=== PATIENT | female | born 1980 | race African-American/Black ===

== ENCOUNTER 2018-07-28 07:46 | Emergency (ER) | payer BC, SELFPAY ==
[~2018-07-28 07:46] MED LIST: Sodium Chloride 0.9% 1,000 ML BAG ONE
[2018-07-28 08:28] LABS: Hemoglobin 12.8 g/dL (12.0-16.0); Mean Corpuscular HGB CONC 31.6 g/dL (32.0-36.0); Mean Corpuscular Hemoglobin 28.5 pg (27.0-31.0); Mean Corpuscular Volume 90.2 fL (78.0-98.0); Platelet Count 289 thou/uL (130-400); RBC Distribution Width 12.1 % (11.5-14.5); Red Blood Cell (RBC) Count 4.49 mill/uL (4.20-5.40); White Blood Cell (WBC) Count 4.2 thou/uL (4.8-10.8)
[2018-07-28 08:29] LABS: Anisocytosis SLIGHT = 6-15 cells (100X) (0-5/hpf); Band 1 % (5-11); Lymphocytes 39 % (21-51); MDiff Complete? YES; Manual Diff?? YES; Monocytes 2 % (0-10); Neutrophil 58 % (42-75); PLT Morphology Comment Appears Adequate
[2018-07-28 08:31] LABS: Anion Gap 15 mmol/L (10-20); BUN (Urea Nitrogen) 11 mg/dL (7.0-18.7); Calc. Creatinine Clearance 0 mL/min (70-130); Calcium 9.5 mg/dL (7.8-10.44); Carbon Dioxide 22 mmol/L (22-29); Chloride 107 mmol/L (98-107); Estimated GFR-MDRD 86; Glucose 90 mg/dL (70-105); Potassium 4.3 mmol/L (3.5-5.1); Sodium 140 mmol/L (136-145)
[2018-07-28 08:34] LABS: CKMB 1.1 ng/mL (0-6.6); Troponin I Less than 0.010 ng/mL (< 0.028)
--- NOTE | 2018-07-28 09:12 | RAD ---
PORTABLE CHEST: Date: 07/28/18 HISTORY: Chest pain. FINDINGS: Heart size within normal limits. Surgical clips overlie the hilar region on the right and both lower lobes. No infiltrative process. Postoperative changes of the left shoulder are seen. IMPRESSION: No evidence of any acute intrathoracic disease. POS: [facility]
== END 2018-07-28 09:10 | disposition home or self-care (01) ==
LOC: MADERS 07:46
DX: R07.81 Pleurodynia (principal)
CPT/HCPCS: 71045; 80048; 82553; 83880; 84484; 85025; 85379; 93005; 94760; 96360; J7050